=== PATIENT | female | born 1970 | race Caucasian/White ===

== ENCOUNTER 2021-06-09 04:15 | Day surgery (SDC) | payer OTHER ==
[2021-06-05 10:13] VITALS: BMI 27.4
[2021-06-09] MEDS ORDERED: PROMETHAZINE HCL 25 MG/1 ML VIAL IVPB PRN (08:19)
[2021-06-09] MEDS ORDERED: ONDANSETRON 4 MG/2 ML VIAL IVPUSH PRN (08:19)
[2021-06-09] MEDS ORDERED: oxyCODONE HCL 5 MG TABLET PO PRN (08:19)
[2021-06-09] MEDS ORDERED: LACTATED RINGERS SOLUTION 1,000 ML IV SCH (08:30)
[2021-06-09] MEDS ORDERED: PROPOFOL 20 ML ONE ×2 (08:50)
[2021-06-09] MEDS ORDERED: GLYCOPYRROLATE 0.2 MG/1 ML VIAL ONE (08:51)
[2021-06-09] MEDS ORDERED: MIDAZOLAM HCL 2 MG/2 ML SINGLE DOSE VIAL ONE (08:51)
[2021-06-09] MEDS ORDERED: LIDOCAINE HCL/PF 2% SDV 5ML VIAL ONE (08:51)
[2021-06-09] MEDS ORDERED: LIDOCAINE HCL 1%, 10 MG/ML (20ML VIAL) NR ONE ×2 (08:53)
[2021-06-09] MEDS ORDERED: METHYLENE BLUE 50 MG/10 ML AMPUL ONE (09:16)
[2021-06-09] MEDS ORDERED: KETOROLAC TROMETHAMINE 30 MG/1 ML VIAL ONE (09:34)
[2021-06-09] MEDS ORDERED: CLINDAMYCIN 600 MG PREMIX BAG IVPB ONE (09:40)
[2021-06-09 10:31] VITALS: TEMP 97.3
[2021-06-09 11:51] VITALS: BP 123/71; PULSE 81
== END 2021-06-09 12:25 | disposition home or self-care (01) ==
LOC: JASU-SURG 04:15
PROVIDERS: ATTEND Surgery
PROC: 0HQXXZZ Repair Left Nipple, External Approach (ICD-10-PCS; principal; 2021-06-09 09:00)
DX: N64.52 Nipple discharge (principal)
CPT/HCPCS: 81025; 88307-TC; Q9968